=== PATIENT | male | born 1950 | race Caucasian/White ===

== ENCOUNTER 2023-06-24 10:21 | Outpatient (OUT) | payer SELFPAY ==
[2023-06-24 11:11] LABS: Basophils Absolute Auto 0.1 10^3/uL (0.0-0.1); Eosinophils Absolute Auto 0.1 10^3/uL (0.0-0.7); Eosinophils Percent Auto 0.7 % (0.9-7.0); Hematocrit 47.1 % (42.0-54.0); Hemoglobin 15.6 g/dL (14.0-18.0); Immature Granulocytes Abs Auto 0.03 10^3/uL (0.00-0.03); Immature Granulocytes Pct Auto 0.3 % (0.0-0.5); Lymphocytes Absolute Auto 2.4 10^3/uL (1.2-3.8); Lymphocytes Percent Auto 24.4 % (20.5-60.0); Mean Corpuscular HGB Conc 33.1 g/dL (29.9-35.2); Mean Corpuscular Hemoglobin 29.9 pg (25.9-34.0); Mean Corpuscular Volume 90.2 fL (80.0-94.0); Mean Platelet Volume 11.1 fL (9.5-13.5); Monocytes Absolute Auto 0.9 10^3/uL (0.3-0.8); Monocytes Percent Auto 9.7 % (1.7-12.0); Neutrophils Absolute Auto 6.2 10^3/uL (1.4-6.5); Neutrophils Percent Auto 63.9 % (43.0-75.0); Platelet Count 293 10^3/uL (150-450); Red Blood Count 5.22 10^6/uL (4.70-6.10); Red Cell Distribution Width 13.6 % (11.0-15.0); White Blood Count 9.7 10^3/uL (4.0-11.0)
[2023-06-24 12:06] LABS: Alanine Aminotransferase 23 U/L (16-63); Albumin Globulin Ratio 1.1; Albumin Level 3.9 g/dL (3.4-5.0); Alkaline Phosphatase 84 U/L (46-116); Anion Gap 11.8; Aspartate Amino Transferase 23 U/L (15-37); BUN Creatinine Ratio 11.3; Bilirubin Total 1.1 mg/dL (0.2-1.0); Calcium 9.1 mg/dL (8.5-10.1); Carbon Dioxide 30.2 mmol/L (21.0-32.0); Chloride 103 mmol/L (98-107); Chol HDL Ratio 1.8; Cholesterol 134 mg/dL (<=200); Estimated GFR (African America >60 (>=60); Estimated GFR (Non-African Ame >60 (>=60); Globulin 3.6 g/dL; Glucose 108 mg/dL (74-106); HDL Cholesterol 75 mg/dL (40-60); Sodium 141 mmol/L (136-145); Total Protein 7.5 g/dL (6.4-8.2); Triglycerides 43 mg/dL (<=150); VLDL CHOLESTEROL 8.6 mg/dL
== END 2023-06-24 10:22 | disposition home or self-care (01) ==
LOC: LAB 10:30
PROVIDERS: PCP Family Medicine
DX: I48.0 Paroxysmal atrial fibrillation (principal); I10 Essential (primary) hypertension
CPT/HCPCS: 36415; 80053; 80061; 85025

== ENCOUNTER 2024-11-18 04:52 | Emergency (ER) | payer MEDICARE, SELFPAY ==
[2024-11-18 04:56] VITALS: BP 217/110; PULSE 67; TEMP 37; O2SAT 97; BMI 32.5
--- OUTSIDE RECORDS SUMMARY | 2024-11-18 04:59 | XMS_ITS | Encounter Summary ---
Author Organization [employer] s tem Address [facility] [id number] [address] [place] [address] Care Team Providers Care Home Care Manager Rn Name Role Phone Quinten Chaudhry DO Primary Care Provider + [phone] Reason for Visit * Reason Comments Med Refill Encounter Details Date Type Department Care Team (Late st Contact Info) Description 02/12/2020 Refill [facility] [address] [facility] [address] [place] [address] Richie Lamas, FINANCIAL AID COUNSELOR-[facility] [address] [place] [address] Med Refill Social History Tobacco Use Types Packs/Day Years Used Date Smoking Tobacco: Never Smokeless Tobacco: Never Alcohol Use Standard Drinks/Week Comments Yes 7 (1 standard drink = 0.6 oz pur e alcohol) six pack a day Childcare Answer Date Recorded Childcare Unknown 11/12/2018 Employment Answer Date Recorded Employment Unknown 11/12/2018 Sex and Gender Information Value Date Recorded Sex Assigned at Not on file Legal Sex Male 2:07 PM EDT Gender Identity Not on file Sexual Orientation Not on file documented as of this encounter Plan of Treatment Not on file documented as of this encounter Goals Goal Patient Goal Type Associated Problems Recent Progress Patient-Stated? Author prevent stroke from A. Fib General Yes Brigitte Pappas, RN Note: Evaluation of progress towards goal: Affordable anticoagulation at d/c. documented as of this encounter Visit Diagnoses Not on filedocumented in this encounter Care Teams Home Care Manager Rn Relationship Specialty Start Date End Date Quinten Chaudhry DO [address] [place] [address] PCP - General Family Medicine 11/13/18 documented as of this encounter
--- OUTSIDE RECORDS SUMMARY | 2024-11-18 04:59 | XMS_ITS | Clinical Summary ---
Author Organization [employer] Address [facility] [id number] [address] [place] [address] Care Team Providers Care Artificial Breeding Technician Name Role Phone Quinten Chaudhry DO Primary Care Provider + [phone] Allergies Active Allergy Reactions Criticality Noted Date Comments Hydromorphone Nausea 11/12/2018 Extreme nausea Medications predniSONE (DELTASONE) 20 mg tablet Take 1 tablet (20 mg total) by mouth as needed. Active apixaban (ELIQUIS) 5 mg tablet Take 1 tablet (5 mg total) by mouth in the morning and 1 tablet (5 mg total) before bedtime. 180 tablet 3 5 Active lisinopriL (PRINIVIL,ZEST RIL) 20 mg tablet Take 1 tablet (20 mg total) by mouth in the morning and 1 tablet (20 mg total) before bedtime. 180 tablet 3 5 Active metoprolol succinate XL (TOPROL XL) 50 mg 24 hr tablet Take 1 tablet (50 mg total) by mouth in the morning. 90 tablet 3 5 Active atorvastatin (LIPITOR) 40 mg tablet TAKE 1 TABLET BY MOUTH EVERY MORNING 90 tablet 5 Active atorvastatin (LIPITOR) 40 mg tablet Take 1 tablet (40 mg total) by mouth in the morning. 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 09/01/2024 Essential hypertension 04/16/2022 Other hyperlipidemia 04/16/2022 Obesity (BMI 30-39.9) 01/03/2021 Paroxysmal atrial fibrillation 11/13/2018 CVA (cerebral vascular accident) 11/12/2018 Encounters Date Type Department Care Team Description 11/10/2024 Refill [facility] [address] [place] [address] Kenya Roman PA-C Med Refill 11/08/2024 Refill [facility] [address] [place] [address] Hipolito Zeng, ABBEY-SERVICE OBSERVER CHIEF Med Refill 09/07/2024 Telephone [facility] [address] [place] [address] Monica Beatty CMA 09/01/2024 8:00 AM EDT Office Visit [facility] [address] [place] [address] Teresa Sauceda MD Paroxysmal atrial fibrillation ([facility]) (Primary Dx); Essential hypertension; Other hyperlipidemia; Abnormal ECG 09/01/2024 Travel 08/31/2024 Telephone [facility] [address] [place] [address] Evangelina Pickett CMA 08/31/2024 Telephone [facility] [address] [place] [address] Monica Mike MA 08/31/2024 Telephone [facility] [address] [place] [address] Monica Mike MA 08/19/2024 Refill [facility] [address] [place] [address] Ivis Schafer, PETRA Med Refill from Last 3 Months Immunizations No known immunizations Family History Medical History Relation Name Comments No Known Problems Father No Known Problems Mother Relation Name Status Comments Father Mother Social History Tobacco Use Types Packs/Day Years Used Date Smoking Tobacco: Never Smokeless Tobacco: Never Tobacco Cessation:Counseling Given: Not Answered Alcohol Use Standard Drinks/Week Comments Yes 7 (1 standard drink = 0.6 oz pur e alcohol) Childcare Answer Date Recorded Childcare Unknown 11/12/2018 Employment Answer Date Recorded Employment Unknown 11/12/2018 Hunger Screening Answer Date Recorded Within the past 12 months we worried whether our food would run out before we got money to buy more. Never True 06/28/2023 Within the past 12 months th e food we bought just didn't last and we didn't have money to get more. Never True 06/28/2023 Purpose - Life Answer Date Recorded Purpose and direction in life Unknown Sex and Gender Information Value Date Recorded Sex Assigned at Not on file Legal Sex Male 2:07 PM EDT Gender Identity Not on file Sexual Orientation Not on file Last Filed Vital Signs Vital Sign Reading Time Taken Comments Blood Pressure 140/80 09/01/2024 7:52 AM EDT Pulse 65 09/01/2024 7:52 AM EDT Temperature 36.5 C (97.7 F) 11/14/2018 11:35 AM EDT Respiratory Rate 19 11/14/2018 11:35 AM EDT Oxygen Saturation 95% 06/28/2023 8:35 AM EST Inhaled Oxygen Concentration - - Weight 115.2 kg (254 lb) 09/01/2024 7:52 AM EDT Height 182.9 cm (6') 09/01/2024 7:52 AM EDT Body Mass Index 34.45 09/01/2024 7:52 AM EDT Plan of Treatment Health Maintenance Due Date Last Done Comments Depression Screening 1962 Adult BMI Follow Up Plan 1968 DTaP,Tdap and Td Vaccines (1 - Tdap) 1969 Zoster (Shingles) Vaccine (1 of 2) 2000 Fall Risk Screening 10/13/2015 COVID-19 Vaccine (2023-2 5 season) 2024 06/19/2021, 11/17/2020, 10/26/2020 Influenza Vaccine 02/08/2025 Adult BMI Screening 09/01/2025 09/01/2024 Tobacco Screening 09/01/2025 09/01/2024 Goals Goal Patient Goal Type Associated Problems Recent Progress Patient-Stated? Author prevent stroke from A. Fib General Yes Brigitte Pappas, RN Note: Evaluation of progress towards goal: Affordable anticoagulation at d/c. Medical Devices Not on file Procedures Procedure Name Priority Date/Time Associated Diagnosis Comments POCT EKG Routine 09/01/2024 8:35 AM EDT Paroxysmal atrial fibrillation (CMS-HCC) from Last 3 Months Results * POCT EKG (09/01/2024 8:35 AM EDT) us Teresa Sauceda MD ECG ORDERABLES Final Res ult MANUALLY TRANSCRIBED RESULTS from Last 3 Months Insurance MEDICARE Advance Directives * Full Code (Latest Code Status on File) Date Activated Date Inactivated Comments 11/12/2018 8:03 PM 11/14/2018 4:47 PM Care Teams Artificial Breeding Technician Relationship Specialty Start Date End Date Quinten Chaudhry DO [address] [place] [address] PCP - General Family Medicine 11/13/18
--- OUTSIDE RECORDS SUMMARY | 2024-11-18 04:59 | XMS_ITS | Encounter Summary ---
Author Organization [employer] Sys tem Address [facility] [id number] [address] [place] [address] Care Team Providers Care Electric Fan Assembler Name Role Phone IsidoroQuinten Lionel MERCEDES Primary Care Provider + [phone] Reason for Visit * Reason Comments Med Refill Encounter Details Date Type Department Care Team (Late st Contact Info) Description 11/10/2024 Refill [facility] [address] [place] [address] Kenya Roman, PA-C [address] [place] [address] Med Refill Social History Tobacco Use Types [...] on file documented as of this encounter Miscellaneous Notes * Telephone Encounter - Paula Edward RN - 11/10/2024 11:18 AM EDT Patient was called to clarify that they want this medication to be sent in for [facility] as we just sent in a year supply to [facility] in August of this year. LMOM to call back. documented in this encounter Plan of Treatment Not on file documented as of this encounter Goals Goal Patient Goal Type Associated Problems Recent Progress Patient-Stated? Author prevent stroke from A. Fib General Yes Brigitte Pappas RN Note: Evaluation of progress towards goal: Affordable anticoagulation at d/c. documented as of this encounter Visit Diagnoses Not on filedocumented in this encounter Care Teams Electric Fan Assembler Relationship Specialty Start Date End Date Quinten Chaudhry DO [address] [place] [address] PCP - General Family Medicine 11/13/18 documented as of this encounter
--- OUTSIDE RECORDS SUMMARY | 2024-11-18 04:59 | XMS_ITS | Encounter Summary ---
Author Organization [employer] Sys [employer] Address [facility] [id number] [address] [place] [address] Care Team Providers Care Waste Water Treatment Plant Operator Name Role Phone Isidoro Quinten Lionel MERCEDES Primary Care Provider [phone] Encounter Details Date Type Department Care Team (Late st Contact Info) Description 10/10/2021 Orders Only [facility] [address] [place] [address] External, Scanning Provider Social History Tobacco Use Types Packs/Day Years Used Date Smoking Tobacco: Never Smokeless Tobacco: Never Alcohol Use Standard Drinks/Week Comments Yes 7 (1 standard drink = 0.6 oz pur e alcohol) Childcare Answer Date Recorded Childcare Unknown 11/12/2018 Employment Answer Date Recorded Employment Unknown 11/12/2018 Purpose - Life Answer Date Recorded Purpose and direction in life Unknown Sex and Gender Information Value Date Recorded Sex Assigned at Not on file Legal Sex Male 2:07 PM EDT Gender Identity Not on file Sexual Orientation Not on file COVID-19 Exposure Response Date Recorded In the last 10 days, have yo u been in contact with someone who was confirmed or suspected to have Coronavirus/COVID-19? No / Unsure 10/03/2021 11:46 AM EDT documented as of this encounter Plan of Treatment Not on file documented as of this encounter Goals Goal Patient Goal Type Associated Problems Recent Progress Patient-Stated? Author prevent stroke from A. Fib General Yes Brigitte Pappas, RN Note: Evaluation of progress towards goal: Affordable anticoagulation at d/c. documented as of this encounter Procedures Procedure Name Priority Date/Time Associated Diagnosis Comments MULTIPLE LABS Routine 10/09/2021 documented in this encounter Results * Multiple labs (10/09/2021) 10/09/2021 us Scanning Provider External TX IMAGING Final Result MANUALLY TRANSCRIBED RESULTS documented in this encounter Visit Diagnoses Not on filedocumented in this encounter Care Teams Waste Water Treatment Plant Operator Relationship Specialty Start Date End Date Quinten Chaudhry DO [address] [place] [address] PCP - General Family Medicine 11/13/18 documented as of this encounter
--- OUTSIDE RECORDS SUMMARY | 2024-11-18 04:59 | XMS_ITS | Encounter Summary ---
Author Organization [employer] Sys tem Address [facility] [id number] [address] [place] [address] Care Team Providers Care Grinding Wheel Dresser Name Role Phone IsidoroQuinten Lionel MERCEDES Primary Care Provider + [phone] Reason for Visit * Reason Comments Med Refill Encounter Details Date Type Department Care Team (Late st Contact Info) Description 01/02/2020 Refill [facility] [address] [facility] [address] [place] [address] Royer Roche, LEAD SCIENTIST-PERSONAL COUNSELOR [address] [place] [address] Med Refill Social History Tobacco Use Types [...] encounter Miscellaneous Notes * Telephone Encounter - Merle Yancey RN - 01/02/2020 1:44 PM EDT LMOM to please obtain labs ordered to refill beyond 30 days. Instructed to fast at least 8 hours prior. Merle Yancey RN 01/06/20 0812 documented in this encounter Plan of Treatment Not on file documented as of this encounter Goals Goal Patient Goal Type Associated Problems Recent Progress Patient-Stated? Author prevent stroke from A. Fib General Yes Brigitte Pappas, RN Note: Evaluation of progress towards goal: Affordable anticoagulation at d/c. documented as of this encounter Results * Lipid profile (05/03/2020 7:50 AM EST) Cholesterol 194 150 - 200 mg/dL 05/03/2020 1:36 PM [facility] Triglycerides 106 27 - 150 mg/dL 05/03/2020 1:36 PM [facility] HDL Cholesterol 57 >39 mg/dL 0 1:36 PM [facility] Comment: HDL <40 mg/dL - High Risk HDL > or = 40mg/dL- Desirable HDL >60 mg/dL - Negative Risk VLDL 21 0 - 30 mg/dL 05/03/2020 1:36 PM [facility] LDL (calc) 116 <130 mg/dL 05/03/2020 1:36 PM [facility] Comment: LDL <100 mg/dL - Desirable LDL >160 mg/dL - High Risk Cholesterol:HDL Ratio 3.4 1.0 - 5.0 05/03/2020 1:36 PM [facility] Serum / Unknown 05/03/2020 7 :50 AM EST 05/03/2020 7:54 AM EST us Richie Lamas LEAD SCIENTIST-PERSONAL COUNSELOR LAB BLOOD ORDERABLES Final Result [facility] [address] [place] [address] * Comprehensive metabolic panel (05/03/2020 7:50 AM EST) Sodium 138 134 - 146 mmol/L 05/03/2020 1:36 PM [facility] Potassium, Bld 4.5 3.5 - 5.0 mmol/L 05/03/2020 1:36 PM [facility] Chloride 98 98 - 109 mmol/L 05/03/2020 1:36 PM [facility] CO2 31 22 - 32 mmol/L 05/03/2020 1:36 PM [facility] Anion gap 9 5 - 15 mmol/L 05/03/2020 1:36 PM [facility] BUN 21 5 - 27 mg/dL 05/03/2020 1:36 PM [facility] Creatinine 1.11 0.60 - 1.30 mg/dL 05/03/2020 1:36 PM [facility] Comment:METHOD TRACEABLE TO IDMS STANDARD Glucose 88 65 - 99 mg/dL 05/03/2020 1:36 PM [facility] Calcium 9.6 8.5 - 10.5 mg/dL 05/03/2020 1:36 PM [facility] Total Protein 7.1 6.0 - 8.0 g/dL 05/03/2020 1:36 PM [facility] Albumin 4.2 3.2 - 5.3 g/dL 05/03/2020 1:36 PM [facility] Alkaline Phosphatase 63 39 - 130 U/L 05/03/2020 1:36 PM [facility] AST 21 0 - 41 U/L 05/03/2020 1:36 PM [facility] ALT 17 0 - 40 U/L 05/03/2020 1:36 PM [facility] Total bilirubin 0.6 0.3 - 1.2 mg/dL 05/03/2020 1:36 PM [facility] GFR MDRD Non Af Amer >60 >59 ml/min/1.7 3sq.m 05/03/2020 1:36 PM [facility] GFR MDRD Af Amer >60 >59 ml/min/1.7 3sq.m 05/03/2020 1:36 PM [facility] Serum / Unknown 05/03/2020 7 :50 AM EST 05/03/2020 7:54 AM EST us Richie Lamas LEAD SCIENTIST-PERSONAL COUNSELOR LAB BLOOD ORDERABLES Final Result [facility] [address] [place] [address] * (ABNORMAL) CBC without diff (05/03/2020 7:50 AM EST) White Blood Cells 10.6 4.0 - 11.0 X10E9/L 05/03/2020 1:19 PM [facility] RBC count 5.58 4.10 - 5.70 X10E12/L 05/03/2020 1:19 PM [facility] Hemoglobin 16.3 13.0 - 17.0 g/dL 05/03/2020 1:19 PM [facility] Hematocrit 49.6(H) 39 - 49 % 05/03/2020 1:19 PM [facility] MCV 89 80 - 100 fL 05/03/2020 1:19 PM [facility] MCH 29.2 27 - 34 pg 05/03/2020 1:19 PM [facility] MCHC 32.9 32 - 36 g/dL 05/03/2020 1:19 PM [facility] RDW 14.7 11.5 - 15.0 % 05/03/2020 1:19 PM [facility] Platelets 297 150 - 450 X10E9/L 05/03/2020 1:19 PM [facility] MPV 9.5 7 - 12 fL 05/03/2020 1:19 PM [facility] Serum / Unknown 05/03/2020 7 :50 AM EST 05/03/2020 7:54 AM EST Richie Lamas LEAD SCIENTIST-PERSONAL COUNSELOR LAB BLOOD ORDERABLES Final Result [facility] [address] [place] [address] documented in this encounter Visit Diagnoses Diagnosis Hyperlipidemia, unspecified hyperlipidemia type- Primary Paroxysmal atrial fibrillation (CMS-HCC) Atrial fibrillation documented in this encounter Care Teams Grinding Wheel Dresser Relationship Specialty Start Date End Date Quinten Chaudhry DO [address] [place] [address] PCP - General Family Medicine 11/13/18 documented as of this encounter
--- OUTSIDE RECORDS SUMMARY | 2024-11-18 04:59 | XMS_ITS | Encounter Summary ---
Author Organization [employer] Address [facility] [place]-[id number] [address] [place] [address] Care Team Providers Care Research Project Manager Name Role Phone IsidoroQuinten Lionel MERCEDES Primary Care Provider + [phone] Reason for Visit * Reason Comments Med Refill Encounter Details Date Type Department Care Team (Late st Contact Info) Description 11/08/2024 Refill [facility] [address] [facility] [address] [place] [address] Hipolito Zeng, BIOMETRICS TECHNICIAN-WRITING MANAGER [address] [id number] Med Refill Social History Tobacco Use Types [...] encounter Miscellaneous Notes * Telephone Encounter - Carine Odell RN - 11/08/2024 9:37 AM EDT Years supply was sent to [facility] at last OV in August. [facility] [place] OV 09/01/24 Lipids 06/24/23 - orders were placed at last visit in August. Refill letter sent to pt in the mail. documented in this encounter Plan of Treatment Not on file documented as of this encounter Goals Goal Patient Goal Type Associated Problems Recent Progress Patient-Stated? Author prevent stroke from A. Fib General Yes Brigitte Pappas RN Note: Evaluation of progress towards goal: Affordable anticoagulation at d/c. documented as of this encounter Visit Diagnoses Not on filedocumented in this encounter Care Teams Research Project Manager Relationship Specialty Start Date End Date Quinten Chaudhry DO [address] [place] [address] PCP - General Family Medicine 11/13/18 documented as of this encounter
--- OUTSIDE RECORDS SUMMARY | 2024-11-18 04:59 | XMS_ITS | Clinical Summary ---
Author Organization [facility] Address [address] [place] [address] Care Team Providers Care Mercerizing Range Feeder Name Role Phone Unavailable Primary Care Provider Unavailabl e Social History Tobacco Use Types Packs/Day Years Used Date Smoking Tobacco: Never Assessed Sex and Gender Information Value Date Recorded Sex Assigned at Not on file Legal Sex Male 12:15 AM EDT Gender Identity Not on file Sexual Orientation Not on file Plan of Treatment Not on file
--- OUTSIDE RECORDS SUMMARY | 2024-11-18 04:59 | XMS_ITS | Encounter Summary ---
Author Organization [employer] Address [facility] [id number] [address] [place] [address] Care Team Providers Care Compressor Repairer Name Role Phone IsidoroQuinten Lionel MERCEDES Primary Care Provider + [phone] Encounter Details Date Type Department Care Team (Late st Contact Info) Description 08/31[facility]2024 [facility] [address] [place] [address] Monica Mike MA Social History Tobacco Use Types Packs/Day Years [...] on filedocumented in this encounter Care Teams Compressor Repairer Relationship Specialty Start Date End Date Quinten Chaudhry DO [facility] [place] [id number] PCP - General Family Medicine 11/13/18 documented as of this encounter
--- OUTSIDE RECORDS SUMMARY | 2024-11-18 04:59 | XMS_ITS | CCD ---
Author Organization [facility] Care Team Providers Care Manager Of Community Relations Name Role Phone MISC, DR BASURTO Consulting Unavailable MIS, DR BASURTO Attending Unavailable MIS, DR BASURTO Admitting Unavailable MISCourtney, DR BASURTO Primary Care Unavailable Quinten Chaudhry DO Primary Care Provider [phone] MAMADOU SAUCEDA Attending Unavailable QUINTEN CHAUDHRY Referring Unavailable QUINTEN CHAUDHRY Primary Care Unavailable Quinten Chaudhry Primary Care Unavailable Quinten Chaudhry Attending Unavailable Quinten Chaudhry Primary Care Unavailable Quinten Chaudhry Attending Unavailable Quinten Chaudhry DO Primary Care Provider Allergies Allergy Classification Reported Allergen(s) Allergy Type Date of Onset Reaction(s) Facility (1 source) HYDROmorphone Drug Allergy 09-24-2014 [facility] (14 sources) HYDROmorphone; Translations: [HYDROMORPHONE] Drug Allergy 11-12-2018 [facility] Medications Current Medications Medication Drug Class(es) Dates Sig (Normalized) Sig (Original) apixaban 5 mg oral tablet (15 sources) Factor Xa Inhibitor Start: 01-03-2021 End: 09-01-2024 take 1 tablet by mouth in the morning, then take 1 tablet by mouth at bedtime apixaban (ELIQUIS) 5 mg tablet Take 1 tablet (5 mg total) by mouth in the morning and 1 tablet (5 mg total) before bedtime. 180 tablet 3 09/01/2024 Active atorvastatin 40 mg oral tablet (18 sources) HMG-CoA Reductase Inhibitor Start: 11-12-2024 take 1 tablet by mouth once daily in the morning atorvastatin (LIPITOR) 40 mg tablet TAKE 1 TABLET BY MOUTH EVERY MORNING 90 tablet 11/12/2024 Active Start: 04-16-2022 End: 11-12-2024 take 1 tablet by mouth in the morning atorvastatin (LIPITOR) 40 mg tablet Take 1 tablet (40 mg total) by mouth in the morning. 90 tablet 3 09/01/2024 11/12/2024 Discontinued lisinopril 20 mg oral tablet (16 sources) Angiotensin Converting Enzyme Inhibitor Start: 05-15-2023 End: 09-01-2024 take 1 tablet by mouth in the morning, then take 1 tablet by mouth at bedtime lisinopriL (PRINIVIL,ZESTRIL) 20 mg tablet Take 1 tablet (20 mg total) by mouth in the morning and 1 tablet (20 mg total) before bedtime. 180 tablet 3 09/01/2024 Active 24 hr metoprolol succinate 50 mg extended release oral tablet (16 sources) beta-Adrenergic Wanda Start: 06-28-2023 End: 09-01-2024 take 1 tablet by mouth every twenty-four hours in the morning metoprolol succinate XL (TOPROL XL) 50 mg 24 hr tablet Take 1 tablet (50 mg total) by mouth in the morning. 90 tablet 3 09/01/2024 Active Start: 05-15-2023 End: 06-28-2023 take 1 tablet by mouth every twenty-four hours in the morning metoprolol succinate XL (TOPROL XL) 25 mg 24 hr tablet Take 1 tablet (25 mg total) by mouth in the morning. 90 tablet 0 05/15/2023 06/28/2023 Discontinued (Reorder) predniSONE 20 mg oral tablet (13 sources) predniSONE (DELT ASONE) 20 mg tablet Take 1 tablet (20 mg total) by mouth as needed. Active Problems Problem Classification Problem Date Documented Date Episodic/Chronic Acute cerebrovascular disease (13 sources) Cerebrovascular accident; Translations: [Cerebral infarction, unspecified] Onset: 9 11-12-2018 Chronic Asthma (1 source) Unspecified asthma, uncomplicated; Translations: [Unspecified asthma, uncomplicated] Onset: 5 Chronic Cardiac dysrhythmias (20 sources) Paroxysmal atrial fibrillation; Translations: [Paroxysmal atrial fibrillation] Onset: 9 Chronic Disorders of lipid metabolism (17 sources) Mixed hyperlipidemia; Translations: [Hyperlipidemia] Onset: 2 04-16-2022 Chronic Essential hypertension (16 sources) Essential hypertension; Translations: [Essential (primary) hypertension] Onset: 2 04-16-2022 Chronic Gout and other crystal arthropathies (3 sources) Chronic gout, unspecified, with tophus (tophi); Translations: [Gouty tophi of other sites, except ear] Onset: 5 09-01-2024 Chronic Other nutritional; endocrine; and metabolic disorders (13 sources) Body mass index 30+ - obesity; Translations: [Obesity, unspecified] Onset: 1 01-03-2021 Chronic Other screening for suspected conditions (not mental disorders or infectious disease) (6 sources) Electrocardiogram abnormal; Translations: [Abnormal electrocardiogram [ECG] [EKG]] Onset: 5 09-01-2024 Episodic Unclassified (1 source) Annual Exam Onset: 5 Unclassified (1 source) Med Refill Onset: 5 Results Test Name Value Interpretation Reference Range Facil ity Outside Recordson 09-01-2024 Outside Records [id number] #1.00OTGTIFF Normal [facility] POCT EKGon 06-28-2023 [facility] CBC AUTO DIFFon 10-09-2021 BASO # 0.1 103/ul Normal 0.0-0.1 [facility] Comment on above: Performed By: #### C BC #### [facility] [address] [place] [address] Dr. Tonja Montana Basophils/100 WBC (Bld) 0.8 % Normal 0.2-2.0 [facility] Comment on above: Performed By: #### C BC #### [facility] [address] [place] [address] Dr. Tonja Montana EO # 0.2 103/ul Normal 0.0-0.7 [facility] Comment on above: Performed By: #### C BC #### [facility] [address] [place] [address] Dr. Tonja Montana Eosinophils/100 WBC (Bld) 2.4 % Normal 0.9-7.0 [facility] Comment on above: Performed By: #### C BC #### [facility] [address] [place] [address] Dr. Tonja Montana Erythrocyte distribution width (RBC) [Ratio] 14.6 % Normal 11.0-15.0 [facility] Comment on above: Performed By: #### C BC #### [facility] [address] [place] [address] Dr. Tonja Montana Hematocrit (Bld) [Volume fraction] 44.8 % Normal 42.0-54.0 [facility] Comment on above: Performed By: #### C BC #### [facility] [address] [place] [address] Dr. Tonja Montana Hemoglobin (Bld) [Mass/Vol] 14.7 g/dL Normal 14.0-18.0 [facility] Comment on above: Performed By: #### C BC #### [facility] [address] [place] [address] Dr. Tonja Montana IG # 0.03 10e3/ul Normal 0.00-0.03 [facility] Comment on above: Performed By: #### C BC #### [facility] [address] [place] [address] Dr. Tonja Montana IG % 0.3 % Normal 0.0-0.5 [facility] Comment on above: Performed By: #### C BC #### [facility] [address] [place] [address] Dr. Tonja Montana LYMPH # 3.3 103/ul Normal 1.2-3.8 [facility] Comment on above: Performed By: #### C BC #### [facility] [address] [place] [address] Dr. Tonja Montana Lymphocytes/100 WBC (Bld) 34.4 % Normal 20.5-60.0 [facility] Comment on above: Performed By: #### C BC #### [facility] [address] [place] [address] Dr. Tonja Montana MANUAL DIFF REQ NO Normal [facility] Comment on above: Performed By: #### C BC #### [facility] [address] [place] [address] Dr. Tonja Montana MCH (RBC) [Entitic mass] 29.6 pg Normal 25.9-34.0 [facility] Comment on above: Performed By: #### C BC #### [facility] [address] [place] [address] Dr. Tonja Montana MCHC (RBC) [Mass/Vol] 32.8 g/dL Normal 29.9-35.2 [facility] Comment on above: Performed By: #### C BC #### [facility] [address] [place] [address] Dr. Tonja Montana MCV (RBC) [Entitic vol] 90.1 fL Normal 80.0-94.0 [facility] Comment on above: Performed By: #### C BC #### [facility] [address] [place] [address] Dr. Tonja Montana MONO # 1.0 103/ul Critically high 0.3-0.8 [facility] Comment on above: Performed By: #### C BC #### [facility] [address] [place] [address] Dr. Tonja Montana Monocytes/100 WBC (Bld) 10.0 % Normal 1.7-12.0 [facility] Comment on above: Performed By: #### C BC #### [facility] [address] [place] [address] Dr. Tonja Montana NEUT # 5.0 103/ul Normal 1.4-6.5 [facility] Comment on above: Performed By: #### C BC #### [facility] [address] [place] [address] Dr. Tonja Montana Neutrophils/100 WBC (Bld) 52.1 % Normal 43.0-75.0 [facility] Comment on above: Performed By: #### C BC #### [facility] [address] [place] [address] Dr. Tonja Montana Platelet mean volume (Bld) [Entitic vol] 10.4 fL Normal 9.5-13.5 [facility] Comment on above: Performed By: #### C BC #### [facility] [address] [place] [address] Dr. Tonja Montana PLT 240 103/ul Normal 150-450 [facility] Comment on above: Performed By: #### C BC #### [facility] [address] [address] [address] Tonja Montana RBC 4.97 106/ul Normal 4.70-6.10 [facility] Comment on above: Performed By: #### C BC #### [facility] [address] [address] [address] Tonja Montana WBC 9.6 103/ul Normal 4.0-11.0 [facility] Comment on above: Performed By: #### C BC #### [facility] [address] [address] [address] Tonja Montana LIPID PROFILEon 10-09-2021 CHOL-HDL RATIO NORM SEE BELOW Normal [facility] Comment on above: Result Comment: 3.3 - 4.4 LOW RISK 4.4 - 7.1 AVERAGE RISK 7.1 - 11.0 MODERATE RISK >11.0 HIGH RISK Performed By: #### C MP, LIPID #### [facility] [address] [place] [address] Dr. Tonja Montana Cholesterol [Mass/Vol] 172 mg/dL Normal <=200 [facility] Comment on above: Performed By: #### C MP, LIPID #### [facility] [address] [place] [address] Dr. Tonja Montana Cholesterol in HDL [Mass/Vol] 53 mg/dL Normal 40-60 [facility] Comment on above: Performed By: #### C MP, LIPID #### [facility] [address] [place] [address] Dr. Tonja Montana Cholesterol in LDL [Mass/Vol] 95.2 mg/dL Normal [facility] Comment on above: Performed By: #### C MP, LIPID #### [facility] [address] [place] [address] Dr. Tonja Montana Cholesterol.total/C holesterol in HDL [Mass ratio] 3.2 {ratio} Normal [facility] Comment on above: Performed By: #### C MP, LIPID #### [facility] [address] [place], [place] [id number] Dr. Tonja Montana HDL NORMAL > or = 60 mg/dl - LOW CARDIOVASCULAR RISK <40 mg/dl - HIGH CARDIOVASCULAR RISK Normal [facility] Comment on above: Performed By: #### C MP, LIPID #### [facility] [address] [place] [address] Dr. Tonja Montana LDL CALC NORMAL SEE BELOW Normal [facility] Comment on above: Result Comment: <100 mg/dl OPTIMAL 100 - 129 mg/dl NEAR OR ABOVE OPTIMAL 130 - 159 mg/dl BORDERLINE HIGH 160 - 189 mg/dl HIGH >190 mg/dl VERY HIGH Performed By: #### C MP, LIPID #### [facility] [address] [address] [address] Tonja Montana Triglyceride [Mass/Vol] 119 mg/dL Normal <=150 [facility] Comment on above: Performed By: #### C MP, LIPID #### [facility] [address] [place] [address] Dr. Tonja Montana VLDL CALC 23.8 mg/dL Normal [facility] Comment on above: Performed By: #### C MP, LIPID #### [facility] [address] [place] [address] Dr. Tonja Montana PROF 14(COMP METB)on 022 Albumin [Mass/Vol] 3.9 g/dL Normal 3.4-5.0 [facility] Comment on above: Performed By: #### C MP, LIPID #### [facility] [address] [place] [address] Dr. Tonja Montana Albumin/Globulin [Mass ratio] 1.2 {ratio} Normal [facility] Comment on above: Performed By: #### C MP, LIPID #### [facility] [address] [address] [address] Tonja Montana ALP [Catalytic activity/Vol] 63 U/L Normal 46-116 [facility] Comment on above: Performed By: #### C MP, LIPID #### [facility] [address] [address] [address] Tonja Montana ALT [Catalytic activity/Vol] 27 U/L Normal 16-63 [facility] Comment on above: Performed By: #### C MP, LIPID #### [facility] [address] [address] [address] Tonja Montana Anion gap [Moles/Vol] 13.5 mmol/L Normal [facility] Comment on above: Performed By: #### C MP, LIPID #### [facility] [address] [address] [address] Tonja Montana AST [Catalytic activity/Vol] 25 U/L Normal 15-37 [facility] Comment on above: Performed By: #### C MP, LIPID #### [facility] [address] [address] [address] Tonja Montana Bilirubin [Mass/Vol] 0.8 mg/dL Normal 0.2-1.0 [facility] Comment on above: Performed By: #### C MP, LIPID #### [facility] [address] [address] [address] Tonja Montana Calcium [Mass/Vol] 8.4 mg/dL Critically low 8.5-10.1 [facility] Comment on above: Performed By: #### C MP, LIPID #### [facility] [address] [address] [address] Tonja Montana Chloride [Moles/Vol] 102 mmol/L Normal 98-107 [facility] Comment on above: Performed By: #### C MP, LIPID #### [facility] [address] [address] [address] Tonja Montana CO2 [Moles/Vol] 27.6 mmol/L Normal 21.0-32.0 [facility] Comment on above: Performed By: #### C MP, LIPID #### [facility] [address] [address] [address] Tonja Montana Creatinine [Mass/Vol] 0.99 mg/dL Normal 0.70-1.30 [facility] Comment on above: Performed By: #### C MP, LIPID #### [facility] [address] [address] [address] Tonja Montana EGFR-AF CITIZEN OF [place] >60 Normal >=60 [facility] Comment on above: Performed By: #### C MP, LIPID #### [facility] [address] [address] [address] Tonja Montana EGFR-NON AF CITIZEN OF [place] >60 Normal >=60 [facility] Comment on above: Performed By: #### C MP, LIPID #### [facility] [address] [address] [address] Tonja Montana Globulin (S) [Mass/Vol] 3.3 g/dL Normal [facility] Comment on above: Performed By: #### C MP, LIPID #### [facility] [address] [address] [address] Tonja Montana Glucose [Mass/Vol] 121 mg/dL Critically high 74-106 [facility] Comment on above: Performed By: #### C MP, LIPID #### [facility] [address] [address] [address] Tonja Montana Potassium [Moles/Vol] 4.1 mmol/L Normal 3.5-5.1 [facility] Comment on above: Performed By: #### C MP, LIPID #### [facility] [address] [address] [address] Tonja Montana Protein [Mass/Vol] 7.2 g/dL Normal 6.1-8.2 [facility] Comment on above: Performed By: #### C MP, LIPID #### [facility] [address] [address] [address] Tonja Montana Sodium [Moles/Vol] 139 mmol/L Normal 136-145 [facility] Comment on above: Performed By: #### C MP, LIPID #### [facility] [address] [address] [address] Tonja Montana Urea nitrogen [Mass/Vol] 12.0 mg/dL Normal 7.0-18.0 [facility] Comment on above: Performed By: #### C MP, LIPID #### [facility] [address] [address] [address] Tonja Montana Urea nitrogen/Creatinine [Mass ratio] 12.1 mg/mg Normal [facility] Comment on above: Performed By: #### C MP, LIPID #### [facility] [address] [place] [address] Dr. Tonja Montana Consent for COVID Vaccineon 11-22-2020 SARS-CoV-2 (COVID-19) RNA LINETTE+probe Ql (Unsp spec) [id number] 5#1.00CD:127 [facility] Coding Summary.on 10-27-2020 Coding Summary. CD:[id number] Gh0bWw+PGhlYWQ+PE1FV OLuK84hyJPahI4TW2wFN V2IQMGXLMKMMD4KZJ0mm IA3QXkwX6HlzcMe UjwbqMNsTH84UKj6XKS1 sNajETrxtA2obIZaD1b0 WlXfKR34lW39NKytYRGi LqA0BfHxkqyecTYk A5baTbZtfOCwIwy+PHRh YmxlIHdpZHRoPScxMDAl MmWhhIyoAD0aPm6pSXRj LWNvbGxhcHNlOiBj g2ltMHRvILpgXF3ilSgl Q7BsjZW0YCXco4h9Me76 dHI+FPHpZZP1dGtuSMzi f896NkMhr5rePWI5 bUUuCYojHKH3O68un6L0 MBDiXINdAKS2bOA1nN4g oUfbehdwL6KqrSOeWoL7 PKF0vOVewO0jsGts jtdfeY9pVmd+L41MQH1U TGZAYF0LLnu3H2QtDyfm dHI+PF88SRGyVH92gDTo eWUdj7mjgKa9UsRm TCGsBHJ1wSpiLSmgh0Zg VVLmG58vkNZxy8L5SBFd mWmxqAAyKkXepUE7fT2x OTwwectbn2huhqhu Lpprg8ejfi89rO56I54a FJfoBLMaRQR4JHRyIHHz rHqwzy1ztB1aGg0+IDxj h5ikt0pjcGm2RhHz VOVbsmUzzFnsENM7y7Yq Qq67V0HedPutv2DsLrb1 ts00dDYog0W4dDC8CGac YCKjnA4xQIpyFkM6 EHXzZgVlvE34vVMcYHgf Be8dlYzlvErzOT8qGJSz orrdZOSfxW8zJIZynEDo bBgsDJ2pSKRvbgxk u115VnQxPFG1VSOdzQPk O2DxlQ1rUpGdHLPnDZLi U8RiuFPeLVhjZ778FTej UjJ6WSOiqxQoC4Ig QUQokUjsExF0o1C5Lj0G x6TfeyrgZSM6VFbdFVQ2 UjBhHhLvPpQ4L9BtDeg5 AIIdrAumSM1rC2Pa PNYsczxaestubGR7UBFh GNSthE32hLCzEMmfLf2u n4K5p466UBTpHIDvaA64 Ot1vpCuzZVOnqHCS yV8yhpcqf2uyeabtJuQt IWWqVNn4SYx2TYZjcQgd OvUlUPD8HbJ6FAO3nFMt hA4tuGliakjpoW2b Oyc+G46gfV7zTVP3ZWX2 zknoTUFeflLrJC86XW41 P4EyZmxktHVsrOL+PGRp giNzaKuvGJ3hHfPq a7xto8EpQRrjG7AbONQj CPaiRgq8GJTdBEA1tVP2 zP8zXOBtXMwam8Q2wFT8 Z3ImkrDecp0id2mx FRLoLBfmT52vbDQvy7T6 MHMiaDX2TOMwrXzjDtRh aI32Nuk+BEMdzPwmg5Pe Kpxfx6dkv1dwoFx4 IjMwJSIgdmFsaWduPSJ0 a0ZyXt36T12dUFhtFVHv TSUsSHIlBIIzyPtyni3f pN7zVj8+PGNvbCB3 hYB4gB4nVWBhVpF4KMvi C523TwEhkAXaJmuuc1zj f2tzpMc6DlGfWPCsdaWn fQcjDTV4e0FmQl65 C23kFTbjAESsQSXlHMYj RKQjmSotax2ofZ1uKb0+ LI0oo0pocj53gF70jJY+ PACgTPL2hWyzUYfy WKUicP5uKAmoUiY0XEOk RcAazO65zXVkMDoxJl7s gUtxnIhrLN7sQGRyenqf m542BsNcs9knTRNa oURiPTzmWFY5I24pl0Y8 ZHRiEDSlPWQ1xUM5pB2x bGlnbjogbGVmdDsgdmVy aSbuOWnuYIuoT581 IHRvcDsnPlBhdGllbnQg CmBiKUq2H8VuHth5XTRg mMexVQ0pgZBwYYcrPm0q uFzvqSfsMR5bVTMx dymap251LeYyg7wqUHJe bHOwVLlzWNL3G04xm3W9 ZSEnNCCkRPV8oRK1mE8u bGlnbjogbGVmdDsg obYbsFfqVBflNWltH942 IHRvcDsnPkJpcnRoIERh oYF7DO97JA71bGRjn1U2 gUV8S4VvOLOcccua uhzrvTE9VNIjMMBauK95 Eq9bvUnfXe0wCBLiWRZ5 IWOxeMHcD1WmpL7vFfRn JGKtFIPqQ6XyxCPw NQckV608WVwbSoL5BEKs gfDuG7JkNYHbkCorAtY0 j7T1Uo3PP9Z5SE25LX25 bYFta6P3uRK4K8Br WLRhfvqlegyoiWK8XRDz QPTqdA10Uo0saKraDs1r MBVuACL8IWSesQSdM4Zt lZ6fTaWtPEYmHYSg O8SbwZKcMDmcC204WEzu KvP8WUQtrrYgW9CqWIKb qKwaLrE4k8L8Ga8DHYz6 YF65LW02kHLpu9V0 xFU7X1KwAXSlaovudwdb xZF8SQLzMDVczL01Vv9g iDgwDz9fOWEkUQQ5UQQm cYPiW3DsjT1oSeIy LKSyXNWuF5LsiHJwBYtz P837IHsxVsH5TRQbbjUl Y4UkGXHjdCxvRgD3v5W0 Ya6JSBDsCU58BGI2 oZO1GD38KK98D6VbPygc dGFibGU+PHRhYmxlIHdp ZHRoPScxMDAlJyBzdHls WK8hDu3aLLIjIQQw wWtylQKbPnOhb4lmTILj BFzeTW2unCwrP9YlmBK2 UQXsv1r9Px89X33tR6Rq dXA+SRApmEV4cEM9 xG4lTeTfPaA0IKroZ866 XiGliYTeTaddi6moh4ao zCp7KgJ2TIHhwlTtwRli EOA3y0VyKf40U48e IHdpZHRoPSIxNSUiIHZh hNsqdy8ttY1gSw0+PGNv vCG8fFR4wO3rNbGrBcN3 UGnxV290WyQajISd Ueana3clc1vcmZy9HnBk NKAqboMzqKyuQVS1y1Bj Qt74C7JlkGopi2YbOfe7 kn14bMEvt4A0jZF1 C3MpTPBxmejjtPFtlIlw GH5xPVLduddxOTNbyK2c WQChK4y7TaNiGbW5HImd V4MtgtE8LLHzhYKv LKrxICK3O12hn3S3UTVf DPCaDYN1vWW9tD0jpGaj bjogbGVmdDsgdmVydGlj HEwgZTzxB734XFZe yVmjMFDzdJ7lPJNzoIUh wZolJU8iAWDvxgyyTkGN KnIDHFEaDIPGBNeGBC54 FK83qVSxs9B7dQY7 E6ErIRWutacriqqnpGC3 RKHcOPGmeY78fBFtKHjn Ba9kk5M1r008XCVzRTDb fX23Ba9mmMkwJDSt tKCEzF5nrecot2iolucs RqOeNAQdOAe9KEu6XAUl iImiIuEyFRK3LpN7WXB8 mRTxqA3cfFyvikep qY8cYwz+MDUvMDUvMTk1 MTwvdGQ+OWRlEXO0vEkw BLqqFUNakR3hTFJcS3z8 MxKrHoV8GCywG2Yo SBCbsnoiHh54jG2tSiGx UkZ0FEacU8CyrvT5VRQa zYHrPCwrHWS1N13me8P5 XMLzIYPtBRP1zGC2 jJ2bkPfximgakPNdwDiq wwGlpNpnCNbgFJvpQ953 IHRvcDsnPjcwIFllYXJz WT05QN77qSWuu9M7 yUH4L5EjKXYrtjazkeyi bMV3GYSeFSFeyU52iBIy UGrjHn3he4K3g606TXHr NQFqaE71Tq8nsBrj CRWgtGJInW1bpkfub6cj adfrTmGqHLZrCZq9LNu8 RUMgcKcjUfSiQZD7CwW5 WLP2hATvuY2qnFik dnlqpR7fYbz+TWFsZTwv dGQ+SBMvJET2dPtvVDia DDMrhJ2uPTRfB5q8IvCg WaO6RTisG2NtCKQr scoxEz30rA7iGaOdLyZ0 QHwmK9AawjU9ZXRhbOUk UTuoYIG8R27lx8E6VJHp CTUeXTF0xNX0tO6l bGlnbjogbGVmdDsgdmVy xLzySVchBHdiU501MAEf vXrsJpIaH0IadsngLqbh dGQ+OA78lh66V4Np ZrxvYkm6TWElCZN3jFA0 gB4gNZHiIAzaz7D8kHF1 S5FjdaIpao2ez5vgZRHp FQtfR36ufLVdz2H9 OIAxhXI4FRWeiLqaWpNs kU81Ifb+ZAVjtTwal7Df Xbhxf6qsv1zjeZb3NcFu JSIgdmFsaWduPSJ0 h1OsBj46V05vGPtuGWBg KQYeTZJnOYSekHjvas4i aM2mYe2+VRUvqXT7gWK0 tS1fTwHuUzS6YQnn P513TkUhsBUsStvmi4dg l3nojUh9HcNkOUGkjvSt iNxbJFA6p5DrDt44B3Iv zMffs8QlZko1cy79 zCQkg9A8cZK0F6YiXIYm mqbtuSHhxTuwYR4xPOUm bmwbHPJifW4pTQAdE6c0 BaPxWsX6UQysW9Hq boD5AMMfrRVmJDAueJKA nJ1qddpln2spxlmpVdMp SSVbBUg3FFz8QCIrgTfe MbDyFDG1DkT7HBZ4 kQOczQ7njYayjwxvzX9s Oyc+PMy1i3lynXSmNS6j oMT0ZH84CT72lIRdb4S9 cCE7O7XnXVShrghu omlrvOA0RQFsOCIjxR52 Iv7kpEuxJz2rUMAjRHY7 MGHrvRDsO5ZrrZ9rJeLl VLXjRQNxM8RwiTAo KBgyJ078CRheTyK5OBHn mwErL1LySQSqkVpdUoJ7 e3N1Xh1YUD95QZ53XD99 tLHlg3P7hOR5L5Ad LAGtgkdowtghwOI8FGUd GZFcdB20Xh2ajIzzOp6b XHMqBMD1CHZunSFkX5Qo qD4wEnSiDQZvVFQd E9ZdaNUvBErsD740MPiv IrX0RQSrokZdV1CrEBOo qPluZwR3q1O5Ug2DAm91 NQ15LZ28kOMpi9I1 dWK1T8TeWERadhetazii mYJ3QVSvDSAskX06Ae2a kJahOk4cVNBfKEF3LMDk cLYxQ1UvyQ7eTfQd NCXaEWYlG6WarQClJOgu A221ZHztPfN0LIRaynXg X2SuNFTriKzkMqB7o5F8 Gm0NGAyqxkl6O5Js PjwvdHI+ON67ODNkWH32 bCCouIDti0fbwUt7WiVc WZDlEAW0xXkhUXzll0Um ZSPxK83hvVEks0H3 IGNv (more content not included)... Normal [facility] Consent for COVID Vaccineon 10-27-2020 SARS-CoV-2 (COVID-19) RNA LINETTE+probe Ql (Unsp spec) [id number] 1#1.00CD:127 [facility] Consent for Treatmenton 10-09 Consent for Treatment [id number] 5#1.00CD:127 [facility] Vital Signs Date Time Vital Sign Value Performing Clinician Samir walker 09-01-2024 07:52-0400 Body height 182.9 cm Mamadou Sauceda MD Work Phone: [facility] 09-01-2024 07:52-0400 Body mass index (BMI) [Ratio] 34.45 kg/m2 Mamad[facility]ceda MD [facility] 09-01-2024 07:52-0400 Body weight 115.21 kg [facility]ced[facility] 09-01-2024 07:52-0400 Diastolic blood pressure 80 mm[Hg] Mamad[facility] Sauceda [facility] 09-01-2024 07:52-0400 Heart rate 65 /min Mamadou Sauceda MD Work Phone: [employer] 09-01-2024 07:52-0400 Systolic blood pressure 140 mm[Hg] Mamadou Sauceda MD Work Phone: [employer] 06-28-2023 08:35-0500 Body height 182.9 cm [facility]ad[facility] Sauceda [facility] 06-28-2023 08:35-0500 Body mass index (BMI) [Ratio] 30.52 kg/m2 Mamadou Sauceda MD Work Phone: [employer] 06-28-2023 08:35-0500 Body weight 102.06 kg Mamadou Sauceda MD Work Phone: [employer] 06-28-2023 08:35-0500 Diastolic blood pressure 90 mm[Hg] Mamad[facility]ceda MD [facility] 06-28-2023 08:35-0500 Heart rate 84 /min Mamadou Sauceda MD Work Phone: [employer] 06-28-2023 08:35-0500 SaO2% (BldA) [Mass fraction] 95 % Mamadou Sauceda MD Work Phone: [employer] 06-28-2023 08:35-0500 Systolic blood pressure 150 mm[Hg] Mamadou Sauceda [facility] En[facility] Encounter Date Encounter Type Care Provider Facility Start: 11-08-2024 End: 11-12-2024 Refill Hipolito Zeng ART FRAMING MANAGER-GYM SUPERVISOR Work Phone: [facility] Comment on above: Med Refill Start: 09-07-2024 End: 09-07-2024 Telephone encounter [facility] Start: 09-01-2024 End: 09-01-2024 Office outpatient visit 15 minutes Mamadou Sauceda MD Work Phone: [facility] Comment on above: Paroxysmal atrial fi brillation ([facility]) (Primary Dx); Essential hypertension; Other hyperlipidemia; Abnormal ECG Start: 09-01-2024 End: 09-01-2024 ambulatory MAMADOU SAUCEDA [facility] Start: 08-31-2024 End: 08-31-2024 Telephone encounter Evangelina Pickett CMA [facility] Start: 08-19-2024 End: 08-19-2024 Refill Ivis Schafer RN [facility] Comment on above: Med Refill Start: 08-07-2024 End: 08-07-2024 Refill Ivis Schafer RN [facility] Comment on above: Med Refill Start: 07-29-2024 End: 07-29-2024 ambulatory Quinten Chaudhry Facility: [facility] Start: 12-18-2023 End: 12-18-2023 [facility] Start: 11-11-2023 End: 11-11-2023 ambulatory Quinten Chaudhry Facility:[facility] Start: 10-24-2023 End: 10-24-2023 Telephone encounter Monica Beatty [facility] Start: 10-18-2023 End: 10-18-2023 Documentation procedure Ivis Schafer RN [facility] Comment on above: Samples Start: 06-28-2023 End: 06-28-2023 Patient encounter procedure Mamadou Sauceda MD Work Phone: [facility] Comment on above: Paroxysmal atrial fi brillation ([facility]) (Primary Dx); Essential hypertension; Other hyperlipidemia Start: 06-27-2023 Telephone encounter Monica Beatty CMA [facility] Start: 06-25-2023 Refill [facility] Comment on above: Med Refill Start: 10-09-2021 End: 10-10-[address] [place] [facility] Facility: Procedures Date Procedure Procedure Detail Performing Clinician Start: 06-28-2023 Ecg routine ecg w/le ast 12 lds w/i&r Mamadou Sauceda MD Work Phone: Plan of Treatment Date Care Activity Detail Author Start: 09-01-2025 Adult BMI Screening Adult BMI Screening [facility] Start: 09-01-2025 Tobacco Screening Tobacco Screening [facility] Start: 02-08-2025 Influenza vaccination Influenza Vaccine [facility] Start: 10-05-2024 End: 10-05-2024 Patient encounter procedure 10/05/2024 8:30 AM EDT Appointment [facility] - Cardi[facility] [address] [place] [id number] Mamadou Sauceda MD [address] [place], [place] [id number] [facility] Start: 09-01-2024 End: 09-01-2025 Echo complete W/O contrast Echo complete W/O contrast Echocardiography Routine Paroxysmal atrial fibrillation (CMS-HCC) Abnormal ECG Expected: 09/01/2024, Expires: 09/01/2025 [facility] Work Phone: Comment on above: Expected: 09/01/2024, Expires: Start: 09-01-2024 End: 09-01-2024 Patient encounter procedure 09/01/2024 8:00 AM EDT Office Visit [facility] [address] [place] [id number] Mamadou Sauceda MD [address] [place] [address] [facility] Start: 06-28-2024 Adult BMI Screening Adult BMI Screening [facility] Start: 06-28-2024 Tobacco Screening Tobacco Screening [facility] Start: 02-09-2024 COVID-19 Vaccine ( season) COVID-19 Vaccine ( season) [facility] Start: 02-09-2024 Influenza vaccination Influenza Vaccine [facility] Start: 06-28-2023 End: 06-28-2023 Patient encounter procedure 06/28/2023 8:00 AM EST Office Visit [facility] [address] [place] [address] Mamadou Sauceda MD [address] [place] [address] [facility] Start: 04-16-2023 Adult BMI Screening Adult BMI Screening [facility] Start: 04-16-2023 Tobacco Screening Tobacco Screening [facility] Start: 02-08-2023 COVID-19 Vaccine () COVID-19 Vaccine () [facility] Start: 02-08-2023 Influenza vaccination Influenza Vaccine [facility] Start: 10-13-2015 Fall Risk Screening Fall Risk Screening [facility] Start: 2000 Administration of varicella zoster vaccine Zoster (Shingles) Vaccine (1 of 2) [facility] Start: 1969 DTaP,Tdap and Td Vaccines (1 - Tdap) DTaP,Tdap and Td Vaccines (1 - Tdap) [facility] Start: 1968 Adult BMI Follow Up Plan Adult BMI Follow Up Plan [facility] Start: 1962 Depression Screening Depression Screening [facility] Start: 1950 Medicare Annual Wellness Visit Medicare Annual Wellness Visit [facility] End: 09-01-2025 CBC panel - Blood by Automated count CBC Lab Routine Paroxysmal atrial fibrillation ([facility]) 1 Occurrences starting 09/01/2024 until 09/01/2025 [facility] Comment on above: 1 Occurrences starting 09/01/2024 until 09/01/2025 End: 09-01-2025 Comprehensive metabolic 2000 panel - Serum or Plasma CMP Lab Routine Essential hypertension 1 Occurrences starting 09/01/2024 until 09/01/2025 [facility] Comment on above: 1 Occurrences starting 09/01/2024 until 09/01/2025 End: 09-01-2025 Lipid panel Lipid panel Lab Routine Other hyperlipidemia 1 Occurrences starting 09/01/2024 until 09/01/2025 [facility] Comment on above: 1 Occurrences starting 09/01/2024 until 09/01/2025 Payers Date Payer Category Payer Self-pay 2017 Medicare MEDICARE [id number] 2017 Medicare [id number] 1959 Self-pay [id number] 1950 Unknown [id number] 1950 Unknown [id number] 1950 Unknown [id number] 1950 Unknown [id number] Social History Date Type Detail Facility Start: [facility]22 [facility] Start: 04-16-2022 Tobacco use and exposure Smoke less tobacco non-user [facility] Start: 04-16-2022 End: 09-01-2024 Alcohol intake Current drinker of alcohol (finding) [facility] Start: 07-21-2020 End: 04-16-2022 Alcohol intake [facility] Start: 07-21-2020 End: 04-16-2022 Tobacco use panel [facility] Housing Instability Unknown [facility] Start: 1950 Sex Assigned At Not on file P [facility] Start: 11-12-2018 Sex Male (finding) [facility] Goals Date Patient Goal Desired Activity /State Personal health goal Comment on above: Formatting of this n ote might be different from the original. Evaluation of progress towards goal: Affordable anticoagulation at d/c. Clinical Notes 06-25-2023 to 11-08-2024 Telephone Encounter - Carine Odell RN - 11/08/2024 9:37 AM EDTTelephone Encounter - Carine Odell RN - 11/08/2024 9:37 AM Nely Sauceda MD - 09/01/2024 8:00 AM EDT Note Date & Type Note Facility 11-08-2024 Miscellaneous Notes Formattin g of this note might be different from the original. [facility]. Pt now [facility] [place] OV 09/01/24 Lipids 06/24/23 - orders were placed at last visit in August. Refill letter sent to pt in the mail. documented in this encounter [facility] 11-08-2024 Telephone encount er Note [facility] [place]. OV 09/01/24 Lipids 06/24/23 - orders were placed at last visit in August. Refill letter sent to pt in the mail. [facility] 09-07-2024 Miscellaneous Notes Formattin g of this note might be different from the original. FAX RECEIVED FROM [facility] [facility] IN REGARDS TO PT'S APPLICATION FOR [employer]. APPLICATION HAS BEEN APPROVED FROM 09/04/2024-06/09/2025. PHONED PT, documented in this encounter [facility] 09-07-2024 Telephone encount er Note FAX RECEIVED FROM [facility] IN REGARDS TO PT'S APPLICATION FOR ELIQUIS. APPLICATION HAS BEEN APPROVED FROM 09/04/2024-06/09/2025. PHONED PT, [facility] [employer] [facility] 09-01-2024 History of Presen t illness Narrative Erik Crum Date of visit: 09/01/2024 Date of : 1950 Age: 73 y.o. 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 apixaban (ELIQUIS) 5 mg tablet Take 1 tablet (5 mg total) by mouth in the morning and 1 tablet (5 mg total) before bedtime. 180 tablet 3 atorvastatin (LIPITOR) 40 mg tablet Take 1 tablet (40 mg total) by mouth in the morning. 90 tablet 3 lisinopriL (PRINIVIL,ZESTRIL) 20 mg tablet Take 1 tablet (20 mg total) by mouth in the morning and 1 tablet (20 mg total) before bedtime. 180 tablet 3 metoprolol succinate XL (TOPROL XL) 50 mg 24 hr tablet Take 1 tablet (50 mg total) by mouth in the morning. 90 tablet 3 No current facility-administered medications for this visit. Chief Complaint Patient presents with Annual Exam Med Refill History of Present Illness I last saw this 73-year-old in June of 2023 He denies chest pain, worsening shortness of breath, syncope or palpitations. 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 He is unaccompanied today CV TESTING HISTORY: ECHO: No results found. STRESS: No results found. HOLTER: No results found. CARDIAC CATH: No results found. CAROTID: No results found. CXR: No results found. Lipid Profile: Lab Results Component Value Date Cholesterol 194 05/03/2020 Cholesterol:HDL Ratio 3.4 05/03/2020 HDL Cholesterol 57 05/03/2020 Triglycerides 106 05/03/2020 LDL (calc) 116 05/03/2020 No data recorded No data recorded No data recorded EKG: Atrial fibrillation with controlled ventricular response and minimally prolonged QT with diffuse ST TTE AV abnormalities. No significant change compared to 06/28/2023 Past Medical History: Diagnosis Date Ear drum perforation Hypertension Stroke ([facility]) History reviewed. No pertinent surgical history. Family History Problem Relation Age of Onset No Known Problems Mother No Known Problems Father Social History Socioeconomic History Marital status: Single Spouse name: Not on file Number of children: Not on file Years of education: Not on file Highest education level: Not on file Occupational History Not on file Tobacco Use Smoking status: Never Smokeless tobacco: Never Vaping Use Vaping status: Never Used Substance and Sexual Activity Alcohol use: Yes Alcohol/week: 7.0 standard drinks of alcohol Types: 7 Cans of beer per week Drug use: Not Currently Sexual activity: Yes Partners: Female control/protection: None Other Topics Concern Caffeine Use Yes Social History Narrative Not on file Social Drivers of Health Financial Resource Strain: Not on file Food Insecurity: No Food Insecurity (06/28/2023) Hunger Screening Food Insecurity - Worry: Never True Food Insecurity - Inability: Never True Transportation Needs: Not on file Physical Activity: Not on file Stress: Not on file Social Connections: Not on file Interpersonal Safety: Not on file Housing Instability: Not on file Review of Systems Review of Systems Constitutional: Negative for malaise/fatigue. HENT: Negative for nosebleeds. Eyes: Negative for blurred vision and double vision. Vascular: Negative for varicose veins. Respiratory: Negative for cough, shortness of breath and wheezing. Musculoskeletal: Negative for joint pain, joint swelling, muscle cramps and muscle weakness. Gastrointestinal: Negative for bloating, abdominal pain and heartburn. Genitourinary: Negative for hematuria. Neurological: Negative for dizziness, headaches, light-headedness and weakness. Psychiatric/Behavioral: Negative for depression. The patient is not nervous/anxious. CARDIOVASCULAR: Please review HPI. Physical Examination General appearance: Alert, oriented and cooperative. In no acute distress. Pleasant Skin: Warm and dry to touch. Respiratory: Clear to auscultation bilaterally, no use of accessory muscles. Cardiovascular: Variable S1 with 1/6 systolic murmur Musculoskeletal: No peripheral edema. Bilateral tophi of hands VITAL SIGNS: BP 140/80 Pulse 65 Ht 182.9 cm (6') Wt 115.2 kg (254 lb) BMI 34.45 kg/m Orders Placed or Reconciled This Encounter Medications apixaban (ELIQUIS) 5 mg tablet Sig: Take 1 tablet (5 mg total) by mouth in the morning and 1 tablet (5 mg total) before bedtime. Dispense: 180 tablet Refill: 3 atorvastatin (LIPITOR) 40 mg tablet Sig: Take 1 tablet (40 mg total) by mouth in the morning. Dispense: 90 tablet Refill: 3 lisinopriL (PRINIVIL,ZESTRIL) 20 mg tablet Sig: Take 1 tablet (20 mg total) by mouth in the morning and 1 tablet (20 mg total) before bedtime. Dispense: 180 tablet Refill: 3 metoprolol succinate XL (TOPROL XL) 50 mg 24 hr tablet Sig: Take 1 tablet (50 mg total) by mouth in the morning. Dispense: 90 tablet Refill: 3 Medications Discontinued During This Encounter Medication Reason apixaban (ELIQUIS) 5 mg tablet Reorder atorvastatin (LIPITOR) 40 mg tablet Reorder metoprolol succinate XL (TOPROL XL) 50 mg 24 hr tablet Reorder lisinopriL (PRINIVIL,ZESTRIL) 20 mg tablet Reorder IMPRESSIONS/PLAN 1. Paroxysmal atrial fibrillation (CMS-HCC) - Echo complete W/O contrast; Future - CBC; Future 2. Essential hypertension - CMP; Future 3. Other hyperlipidemia - Lipid panel; Future 4. Abnormal ECG - Echo complete W/O contrast; Future 1. Paroxysmal atrial fibrillation, asymptomatic -rate controlled -Eliquis 2. Primary hypertension 3. Hyperlipidemia --lipid studies 06/24/2023 --atorvastatin 4. History of CVA 5. Tophaceous gout TODAYS ORDERS Orders Placed This Encounter Procedures Lipid panel CMP CBC Echo complete W/O contrast FOLLOW UP Return in about 1 year (around 09/01/2025). PCP: Quinten Chaudhry DO Referring Physician: Quinten Chaudhry DO [address] [place] [address] documented in this encounter [employer] 08-31-2024 Miscellaneous Notes Formattin g of this note might be different from the original. Called patient to remind them to bring their most current copy of their medication list with them to their appt. Patient verbalizes understanding. documented in this encounter [employer] 08-31-2024 Telephone encount er Note Called patient to remind them to bring their most current copy of their medication list with them to their appt. Patient verbalizes understanding. [facility] 08-31-2024 Miscellaneous Notes Formattin g of this note might be different from the original. ERROR documented in this encounter [facility] 08-31-2024 Telephone encount er Note ERROR [facility] 08-19-2024 Miscellaneous Notes Formattin g of this note might be different from the original. OV 09/01/2024 CMP 06/24/2023 documented in this encounter [facility] 08-19-2024 Telephone encount er Note OV 09/01/2024 CMP 06/24/2023 [facility] 08-07-2024 Miscellaneous Notes Formattin g of this note might be different from the original. Lipid panel 06/24/2023 OV 06/28/2023 Has dav appt on 09/01/24 Patient requesting Eliquis 5mg samples. Two boxes set aside for p/u, sample log to be updated. documented in this encounter [facility] 08-07-2024 Telephone encount er Note Lipid panel 06/24/2023 OV 06/28/2023 Has dav appt on 09/01/24 Patient requesting Eliquis 5mg samples. Two boxes set aside for p/u, sample log to be updated. [facility] 05-11-2024 Note - From: Edyta Mcfarland RN ([facility] ([facility])) To: Briseida Eldridge CNP; Sent: 05/11/2024 15:38:11 EST Subject: Med Management Caller Name: ERIK CRUM; Caller Number: Too , M Caller is: ( X ) Patient ( ) Mother ( ) Father ( ) Pharmacy ( ) Other: Pharmacy to route Rx to: [facility] Patient's Provider: Reviewed Allergies: ( ) Yes ( ) No Pharmacy: [facility] Comments: 1. Name of Medication: PREDNISONE 20MG Dosage: Dispense: ( ) New ( ) Refill Comment: 2. Name of Medication: Dosage: Dispense: ( ) New ( ) Refill Comment: 3. Name of Medication: Dosage: Dispense: ( ) New ( ) Refill Comment: 4. Name of Medication: Dosage: Dispense: ( ) New ( ) Refill Comment: ( ) OK to leave message on voice mail ( ) Patient told to expect return call: ( ) today ( ) tomorrow ( ) next work day ( ) Patient's email ( ) Other: Call back phone # now: until: Call back phone # later: Submitted: Order:predniSONE (predniSONE 20 mg oral tablet) 2 tab(s) Oral Daily Qty: 50 tab(s) Duration: 5 day(s) Refills: 0 Substitutions Allowed PRN if needed Route To Pharmacy - [id number] Signed by Briseida Eldridge APRN, CNP 05/11/2024 15:47:00 [facility] 12-18-2023 Miscellaneous Notes Formattin g of this note might be different from the original. P/c from patient requesting samples of eliquis. Samples placed in sample bin and sample log updated. 06/28/23 OV 06/24/23 CMP, CBC documented in this encounter [facility] 12-18-2023 Telephone encount er Note P/c from patient requesting samples of eliquis. Samples placed in sample bin and sample log updated. 06/28/23 OV 06/24/23 CMP, CBC [facility] 10-24-2023 Miscellaneous Notes Formattin g of this note might be different from the original. [place] [facility] [place] regards to [place]'s application for assistance and was denied, pt needs to apply for Extra Help, phoned pt, advised of this, verbalized understanding and was given the phone number to call . documented in this encounter [facility] 10-24-2023 Telephone encount er Note [place] [facility] [place] regards [place] pt's application for assistance and was denied, pt needs to apply for Extra Help, phoned pt, advised of this, verbalized understanding and was given the phone number to call . [facility] 10-21-2023 Note - From: Edyta Mcfarland RN ([facility] ([place])) To: Quinten Chaudhry DO; Sent: 10/21/2023 09:09:18 EDT Subject: FW: Medication Management Due Date/Time: 10/21/2023 15:10:00 EDT Caller Name: OWENYULIETERIK; Caller Number: , M From: [facility] #[id number] To: Quinten Chaudhry DO Sent: October 19, 2023 2:10:06 PM CDT Subject: Medication Management Due: October 20, 2023 12:30:34 AM CDT On Hold Pending Signature Drug: predniSONE (predniSONE 20 mg oral tablet), take 2 tablets by mouth once daily for 5 days if needed Quantity: 50 tab(s) Days Supply: 25 Refills: 0 Substitutions Allowed Notes from Pharmacy: Dispensed Drug: predniSONE (predniSONE 20 mg oral tablet), take 2 tablets by mouth once daily for 5 days if needed Quantity: 50 tab(s) Days Supply: 25 Refills: 0 Substitutions Allowed Notes from Pharmacy: From: Quinten Chaudhry DO To: [facility] #[id number] Sent: 10/21/2023 09:14:00 EDT Subject: FW: Medication Management Submitted: Complete:predniSONE (predniSONE 20 mg oral tablet) Signed by Quinten Chaudhry DO 10/21/2023 09:13:00 EDT Approved with modifications: predniSONE (PREDNISONE 20 MG TABLET) take 2 tablets by mouth once daily for 5 days if needed Qty: 50 tab(s) Days Supply: 25 Refills: 0 Substitutions Allowed Route To [facility]acy - [id number] [facility] 10-18-2023 History of Presen t illness Narrative Patient called into office requesting Eliquis 5mg samples. Two boxes set aside for p/u; sample log updated. UTD on labs and OV. documented in this encounter [facility] 06-28-2023 History of Presen t illness Narrative Erik Crum Date of visit: 06/28/2023 Date of : 1950 Age: 72 y.o. Patient Active Problem List Diagnosis CVA (cerebral vascular accident) ([facility]) Paroxysmal atrial fibrillation ([facility]) Obesity (BMI 30-39.9) Essential hypertension Other hyperlipidemia Allergies Allergen Reactions Dilaudid [Hydromorphone] Nausea Extreme nausea Current Outpatient Medications Medication Sig Dispense Refill predniSONE (DELTASONE) 20 mg tablet Take 1 tablet (20 mg total) by mouth as needed. apixaban (ELIQUIS) 5 mg tablet Take 1 tablet (5 mg total) by mouth in the morning and 1 tablet (5 mg total) before bedtime. 180 tablet 3 atorvastatin (LIPITOR) 40 mg tablet Take 1 tablet (40 mg total) by mouth in the morning. 90 tablet 3 lisinopriL (PRINIVIL,ZESTRIL) 20 mg tablet Take 1 tablet (20 mg total) by mouth in the morning and 1 tablet (20 mg total) before bedtime. 180 tablet 3 metoprolol succinate XL (TOPROL XL) 50 mg 24 hr tablet Take 1 tablet (50 mg total) by mouth in the morning. 90 tablet 3 No current facility-administered medications for this visit. Chief Complaint Patient presents with Follow-up EST PT F/U 1 YR L/S BLD LABS ANDRIY SCHED W/PT Med Refill All cardiac meds 90 days History of Present Illness I had the opportunity to meet this 72-year-old today. He was last in the office 04/2022 He reports that he has been doing well. 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 He is unaccompanied today CV TESTING HISTORY: ECHO: No results found. STRESS: No results found. HOLTER: No results found. CARDIAC CATH: No results found. CAROTID: No results found. CXR: No results found. Lipid Profile: Lab Results Component Value Date Cholesterol 194 05/03/2020 Cholesterol:HDL Ratio 3.4 05/03/2020 HDL Cholesterol 57 05/03/2020 Triglycerides 106 05/03/2020 LDL (calc) 116 05/03/2020 06/24/2023 Creatinine 1.15 EK06/28/2023 atrial fibrillation at 73 beats per minute Past Medical History: Diagnosis Date Ear drum perforation Hypertension Stroke ([facility]) History reviewed. No pertinent surgical history. Family History Problem Relation Age of Onset No Known Problems Mother No Known Problems Father Social History Socioeconomic History Marital status: Single Spouse name: Not on file Number of children: Not on file Years of education: Not on file Highest education level: Not on file Occupational History Not on file Tobacco Use Smoking status: Never Smokeless tobacco: Never Vaping Use Vaping Use: Never used Substance and Sexual Activity Alcohol use: Yes Alcohol/week: 7.0 standard drinks of alcohol Types: 7 Cans of beer per week Drug use: Not Currently Sexual activity: Yes Partners: Female control/protection: None Other Topics Concern Caffeine Use Yes Social History Narrative Not on file Social Determinants of Health Financial Resource Strain: Not on file Food Insecurity: No Food Insecurity (06/28/2023) Hunger Screening Food Insecurity - Worry: Never True Food Insecurity - Inability: Never True Transportation Needs: Not on file Physical Activity: Not on file Stress: Not on file Social Connections: Not on file Interpersonal Safety: Not on file Review of Systems Review of Systems Constitutional: Negative for chills, fever and malaise/fatigue. HENT: Negative for hearing loss, hoarse voice and nosebleeds. Eyes: Negative for blurred vision and double vision. Respiratory: Negative for cough, shortness of breath and wheezing. Skin: Negative for color change and rash. Musculoskeletal: Positive for arthritis and joint swelling. Negative for back pain and muscle weakness. Gastrointestinal: Negative for change in bowel habit, constipation and diarrhea. Neurological: Negative for dizziness, headaches, light-headedness, loss of balance and numbness. Psychiatric/Behavioral: Negative for depression. The patient is not nervous/anxious. Allergic/Immunologic: Negative for environmental allergies. CARDIOVASCULAR: Please review HPI. Physical Examination General appearance: Alert, oriented and cooperative. In no acute distress. Skin: Warm and dry to touch. Head: Normocephalic, without obvious abnormality, atraumatic. Respiratory: Clear to auscultation bilaterally, no use of accessory muscles. Cardiovascular: Variable S1 Musculoskeletal: No peripheral edema. Severe tophaceous gout of bilateral hands VITAL SIGNS: BP 150/90 (BP Site: Left Arm, BP Postition: Sitting) Pulse 84 Ht 182.9 cm (6') Wt 102.1 kg (225 lb) SpO2 95% BMI 30.52 kg/m Orders Placed or Reconciled This Encounter Medications apixaban (ELIQUIS) 5 mg tablet Sig: Take 1 tablet (5 mg total) by mouth in the morning and 1 tablet (5 mg total) before bedtime. Dispense: 180 tablet Refill: 3 atorvastatin (LIPITOR) 40 mg tablet Sig: Take 1 tablet (40 mg total) by mouth in the morning. Dispense: 90 tablet Refill: 3 lisinopriL (PRINIVIL,ZESTRIL) 20 mg tablet Sig: Take 1 tablet (20 mg total) by mouth in the morning and 1 tablet (20 mg total) before bedtime. Dispense: 180 tablet Refill: 3 metoprolol succinate XL (TOPROL XL) 50 mg 24 hr tablet Sig: Take 1 tablet (50 mg total) by mouth in the morning. Dispense: 90 tablet Refill: 3 Medications Discontinued During This Encounter Medication Reason apixaban (ELIQUIS) 5 mg tablet Reorder lisinopriL (PRINIVIL,ZESTRIL) 20 mg tablet Reorder metoprolol succinate XL (TOPROL XL) 25 mg 24 hr tablet Reorder atorvastatin (LIPITOR) 40 mg tablet Reorder IMPRESSIONS/PLAN 1. Paroxysmal atrial fibrillation (CMS-HCC) - POCT EKG 2. Essential hypertension - POCT EKG 3. Other hyperlipidemia 1. Paroxysmal atrial fibrillation, asymptomatic -rate controlled -Eliquis 2. Primary hypertension 3. Hyperlipidemia --lipid studies 06/24/2023 --atorvastatin 4. History of CVA TODAYS ORDERS Orders Placed This Encounter Procedures POCT EKG FOLLOW UP Return in about 1 year (around 06/28/2024). PCP: Quinten Chaudhry DO Referring Physician: Quinten Chaudhry DO [address] [place] [address] documented in this encounter [facility] 06-28-2023 Instructions Mamadou Sauceda MD - 06/28/2023 9:00 AM EST Increase metoprolol succinate/Toprol to 50 mg daily documented in this encounter [facility] 06-27-2023 Miscellaneous Notes Formattin g of this note might be different from the original. Called patient to remind them to bring their most current copy of their medication list with them to their appt. Patient verbalizes understanding. documented in this encounter [facility] 06-27-2023 Telephone encount er Note Called patient to remind them to bring their most current copy of their medication list with them to their appt. Patient verbalizes understanding. [facility] 06-25-2023 Miscellaneous Notes Formattin g of this note might be different from the original. LMOM to notify pt of updated fasting labs needed for further refills. [employer]ice asked for r/c to office if he needs the orders in epic faxed closer to home. 04/16/22 BLD; pt has a f/u schedule 06/28/23 10/12/21 Lipids documented in this encounter [facility] 06-25-2023 Telephone encount er Note LMOM to notify pt of updated fasting labs needed for further refills. [employer]ice asked for r/c to office if he needs the orders in epic faxed closer to home. 04/16/22 BLD; pt has a f/u schedule 06/28/23 10/12/21 Lipids [facility] Evaluation note Diagnosis Paroxysmal atrial fibrillation (CMS-HCC)- Primary Atrial fibrillation Essential hypertension Unspecified essential hypertension Other hyperlipidemia [facility] Diagnosis Paroxysmal atrial fibrillation (CMS-HCC)- Primary Atrial fibrillation Essential hypertension Unspecified essential hypertension Other hyperlipidemia Abnormal ECG Nonspecific abnormal electrocardiogram (ECG) (EKG) documented [facility] filedocumented in this encounter [facility] filedocumented in this encounter [facility]ed in this [facility] filedocumented in [facility] filedocumented in this encounter [facility] Summary Purpose Family History No Family History Records FoundNo Family History Records FoundNo Family History Records FoundNo Family History Records Found Advance Directives Latest Code Status on File Code Status Date Activated Date Inactivated Comments Full Code 11/12/2018 8:03 PM 11/14/2018 4:47 PM Date Activated Date Inactivated Comments 11/12/2018 8:03 PM 11/14/2018 4:47 PM Date Activated Date Inactivated Comments 11/12/2018 8:03 PM 11/14/2018 4:47 PM Additional Source Comments (unrecognized sect ion and content) No Status Records FoundNo Status Records FoundNo Status Records FoundNo Status Records Found INFORMATION SOURCE (unrecogn ized section and content) DATE CREATED AUTHOR 01/21/2021 [facility] DATE CREATED AUTHOR AUTHOR'S ORGANIZ ATION 10/16/2021 [facility] DATE CREATED AUTHOR AUTHOR'S ORGANIZ ATION [facility] DATE CREATED AUTHOR AUTHOR'S ORGANIZ ATION 09/02/2024 [facility] Reason for Visit (unrecogniz ed section and content) Reason Onset Date Comments Med Refill 06/25/2023 Reason Onset Date Comments Samples 10/18/2023 Reason Comments Follow-up EST PT F/U 1 YR L/S BLD [facility] ANDRIY SCHED W/PT Med Refill All cardiac meds 90 days Reason Onset Date Comments [facility] 12/18/2023 Reason Onset Date Comments Med Refill 08/07/2024 Reason Onset Date Comments Med Refill 08/19/2024 Reason Comments Annual Exam Med Refill Reason Comments Med Refill Care Teams (unrecognized sec tion and content) Manager Of Community Relations Relationship Specialty Start Date End Date Quinten Chaudhry DO [address] [place] [address] PCP - General Family Medicine 11/13/18 Manager Of Community Relations Relationship Specialty Start Date End Date Quinten Chaudhry DO [address] [place] [address] PCP - General Family Medicine 11/13/18 Manager Of Community Relations Relationship Specialty Start Date End Date Quinten Chaudhry DO [address] [place] [address] PCP - General Family Medicine 11/13/18 Manager Of Community Relations Relationship Specialty Start Date End Date Quinten Chaudhry DO [address] [place] [address] PCP - General Family Medicine 11/13/18 Manager Of Community Relations Relationship Specialty Start Date End Date Quinten Chaudhry DO [address] [place] [address] PCP - General Family Medicine 11/13/18 Manager Of Community Relations Relationship Specialty Start Date End Date Quinten Chaudhry DO [address] [place] [address] PCP - General Family Medicine 11/13/18 Manager Of Community Relations Relationship Specialty Start Date End Date Quinten Chaudhry DO [address] [place] [address] PCP - General Family Medicine 11/13/18 Manager Of Community Relations Relationship Specialty Start Date End Date Quinten Chaudhry DO [address] [place] [address] PCP - General Family Medicine 11/13/18 FOR RECORDS PERTAINING TO PATIENTS WHO ARE OR HAVE BEEN ENROLLED IN A CHEMICAL DEPENDENCY/SUBSTANCEABUSE PROGRAM, SOME INFORMATION MAY BE OMITTED. This clinical summary was aggregated from multiple sources. Caution should be exercised in using it in the provision of clinical care. This summary normalizes information from multiple sources, and as a consequence, information in this document may materially change the coding, format and clinical context of patient data. In addition, data may be omitted in some cases. CLINICAL DECISIONS SHOULD BE BASED ON THE PRIMARY CLINICAL RECORDS. [facility] [employer] [facility]. provides no warranty or guarantee of the accuracy or completeness of information in this document.
--- OUTSIDE RECORDS SUMMARY | 2024-11-18 04:59 | XMS_ITS | Encounter Summary ---
Author Organization [employer] Address [id number] [address] [place] [address] Care Team Providers Care Sales Coordinator Name Role Phone Vipul Chaudhryen Lionel MERCEDES Primary Care Provider + [phone] Reason for Visit * Reason Comments Med Refill Encounter Details Date Type Department Care Team (Late st Contact Info) Description 10/09/2021 Refill [facility] [address] [id number] Maikol Gilbert, PA-C [address] [place] [id number] Med Refill Social History Tobacco Use Types [...] AM EDT documented as of this encounter Miscellaneous Notes * Telephone Encounter - Lori Rasmussen LPN - 10/09/2021 4:33 PM EDT Refilled 5/4/22 with 8 refills documented in this encounter Plan of Treatment Not on file documented as of this encounter Goals Goal Patient Goal Type Associated Problems Recent Progress Patient-Stated? Author prevent stroke from A. Fib General Yes Brigitte Pappas, RN Note: Evaluation of progress towards goal: Affordable anticoagulation at d/c. documented as of this encounter Visit Diagnoses Not on filedocumented in this encounter Care Teams Sales Coordinator Relationship Specialty Start Date End Date Quinten Chaudhry DO [address] [place] [address] PCP - General Family Medicine 11/13/18 documented as of this encounter
--- OUTSIDE RECORDS SUMMARY | 2024-11-18 04:59 | XMS_ITS | Referral Summary ---
Author Organization [facility] Address [address] [place] [address] Care Team Providers Care Print Journalist Name Role Phone Unavailable Primary Care Provider [...]
--- NOTE | 2024-11-18 05:17 | PC.NURSE ---
Pharmacy contacted at [phone] to ask them to expedite verifying this pt's meds. Continue to await verification.
[2024-11-18] MEDS: FLUORESCEIN SODIUM 1 MG STRIP OP (05:27)
[2024-11-18] MEDS: TETRACAINE HCL 0.5% OP SOL 80 DROP/4 ML BOTTLE OP (05:27)
[2024-11-18] MEDS: IBUPROFEN 400 MG TABLET 800 MG PO (05:28)
[2024-11-18] MEDS: ONDANSETRON 4 MG RAPDIS TABLET SL (05:28)
[2024-11-18] MEDS: ERYTHROMYCIN OP OINT 0.5% 1 GM TUBE OP (05:28)
[2024-11-18] MEDS: OXYCODONE HCL/ACETAMINOPHEN 5MG/325MG 1 TAB PO (05:28)
--- NOTE | 2024-11-18 05:31 | PC.NURSE ---
unable to do visual acuity--pt vision is blurry
[2024-11-18 05:50] VITALS: BP 201/99; PULSE 70; O2SAT 98
--- NOTE | 2024-11-18 05:50 | ED_ITS ---
HPI HPI - General Adult General Chief complaint: Eye Problems Stated complaint: EYE PAIN Time Seen by Provider: 11/18/24 04:53 Source: patient Mode of arrival: walk-in History of Present Illness HPI narrative: 74-year-old male to the emergency department chief complaint of bilateral eye pain. Patient reports that yesterday he was watching someone do some welding. He was not wearing eye protection. He reports he has a history of getting Welders flash. He reports symptoms are consistent with that. Bilateral eye pain, tearing and some blurred vision. He denies any other ocular problems. Does not wear contacts. No foreign body sensation. No metal grinding. He believes his tetanus is up-to-date. Related Data Home Medications ?Medication ?Instructions ?Recorded ?Confirmed albuterol sulfate 90 mcg/actuation inhalation 11/18/24 aerosol inhaler atorvastatin 40 mg tablet mg 11/18/24 lisinopril 20 mg tablet mg 11/18/24 metoprolol succinate 50 mg mg PO 11/18/24 tablet,extended release 24 hr Previous Rx's ?Medication ?Instructions ?Recorded oxycodone-acetaminophen 5 mg-325 1 tab PO Q6H PRN pain 3 days #12 11/18/24 mg tablet (Percocet) tabs Allergies Allergy/AdvReac Type Severity Reaction Status Date / Time hydromorphone (From Dilaudid) AdvReac Mild Vomiting Verified 11/18/24 05:04 Opioid HPI Opioid Management Most Recent Opioid Data: Last Pain Scale 10 Today, 05:28 Last AUG Pain Assessment Today, 05:28 Review of Systems ROS Status of ROS 10 or more systems reviewed and unremark able except as noted in history and below PFSH PFSH Social History Little interest or pleasure in doing things: not at all Feeling down, depressed, or hopeless: not at all Exam Narrative Exam Narrative: VITALS: I have reviewed the triage vital signs. GENERAL: Well developed, well appearing adult in no acute distress. NEURO: Alert and oriented. Moves all extremities. Face is symmetric and expressive. EYES: PERRL. Bilateral conjunctival injection. No scleral icterus. Globes soft. No discharge. No dendritic lesions. Punctate uptake of fluorescein. No hypopyon. No hyphema. No foreign bodies visualized. HENT: Normocephalic, atraumatic. Hearing is grossly intact. Nares grossly patent and without discharge. Mucous membranes moist. NECK: No JVD. Patient moves neck without restriction. EXTREMITIES: Symmetric muscle bulk. No joint swelling. No clubbing, cyanosis, or deformity. SKIN: Warm and dry. Normal turgor. No rash or lesions appreciated. PSYCH: Mood, affect, and interaction is appropriate to the setting. Constitutional Vital Signs, click to edit/add: Last Vital Signs Temp 98.6 F 11/18/24 04:56 Pulse 67 11/18/24 04:56 Resp 18 11/18/24 04:56 BP 217/110 H 11/18/24 04:56 Pulse Ox 97 11/18/24 04:56 O2 Del Method Room Air 11/18/24 04:56 Course Vital Signs Vital signs: Vital Signs Temperature 98.6 F 11/18/24 04:56 Pulse Rate 67 11/18/24 04:56 Respiratory Rate 18 11/18/24 04:56 Blood Pressure 217/110 H 11/18/24 04:56 Pulse Oximetry 97 11/18/24 04:56 Oxygen Delivery Method Room Air 11/18/24 04:56 Temperature 98.6 F 11/18/24 04:56 Pulse Rate 67 11/18/24 04:56 Respiratory Rate 18 11/18/24 04:56 Blood Pressure 217/110 H 11/18/24 04:56 Pulse Oximetry 97 11/18/24 04:56 Oxygen Delivery Method Room Air 11/18/24 04:56 Medical Decision Making MDM Narrative Medical decision making narrative: 74-year-old male to the emergency with bilateral eye pain after watching some well consistent with previous episodes of Welders flash. Vital stable, the patient is afebrile. Ibuprofen and Percocet were given. Tetracaine was instilled into the bilateral eyes. Punctate uptake consistent with Welders flash. Pain-related hypertension. erythromycin eye ointment. Ophthalmology follow-up. Return precautions were discussed. Percocet was prescribed for breakthrough pain. Recommended continued use of NSAIDs. Return precautions were discussed. All questions were answered. The patient was discharged home. Medical Records Medical records reviewed: Yes I reviewed the patient's medical records Discharge Plan Discharge Chief Complaint: Eye Problems Clinical Impression: UV keratitis Patient Disposition: Home, Self-Care Time of Disposition Decision: 05:40 Condition: Good Mode of Transportation: Private Vehicle Prescriptions / Home Meds: New oxycodone-acetaminophen [Percocet] 5-325 mg tablet 1 tab PO Q6H PRN (Reason: pain) 3 Days Qty: 12 0RF No Action atorvastatin 40 mg tablet metoprolol succinate 50 mg tablet extended release 24 hr PO lisinopril 20 mg tablet albuterol sulfate 90 mcg/actuation HFA aerosol inhaler INHALATION Print Language: Eritrean Instructions: Corneal Flash Guaman (ED) Referrals: Jose Holland MD [Physician, Opthalmology] - As soon as possible Referral Note: Follow-up with your eye doctor or the 1 listed above in the next 3 days to ensure that you have healed completely. Should you have worsening vision or pain return to the ED for repeat evaluation BENITO KAPOOR [Primary Care Provider, Family Practice] - 1 week
== END 2024-11-18 05:55 | disposition home or self-care (01) ==
PROVIDERS: Emergency Provider Student in an Organized Health Care Education/Training Program; PCP Family Medicine
DX: H16.103 Unspecified superficial keratitis, bilateral (principal); H57.13 Ocular pain, bilateral; H53.8 Other visual disturbances; H04.213 Epiphora due to excess lacrimation, bilateral lacrimal glands
CPT/HCPCS: 99283; Q0162